=== PATIENT | female | born 1960 | race Caucasian/White ===

== ENCOUNTER 2021-12-04 08:50 | Day surgery (SDC) | payer OTHER ==
[~2021-12-04] VITALS: Ht 172.7 cm; Wt 58.2 kg
[~2021-12-04 08:50] MED LIST: ALBU90OI61 INH; ASPI325 PO; HYDR1TAB94 PO; Hair, Skin & N1 EACH PO; LORA10 PO; Mucinex1200 MG PO; Norco 5-325 Ta1 EACH PO; ONDA4 PO; OSTERA TABLET1 EACH PO; OXCA300 PO; PYRIDOSTIGMINE PO; UBID100 PO; Ultram50 MG PO
[2021-12-04] MEDS ORDERED: TRAM50 PO (10:08)
--- NOTE | 2021-12-04 10:30 | NUR ---
12/04/[address] ORDERED A TEST DOSE OF ANCEF TO BE GIVEN TO THE PATIENT WHILE IN PRE-OP DUE TO THE PHARMACY NOTIFYING US OF AN ALLERGY TO CEPHALOSPORINS. HE GAVE VERBAL ORDER TO GIVE 20% OF THE DOSE OF ANCEF 2GM AND HAVE BENADRYL 25MG IV READY IN CASE OF REACTION. PT STATES HER REACTION WAS MILD ITCHING. SHE TOLERATED TEST DOSE WELL THAT WAS GIVEN AT 1012. THEN DR ELIZABETH ORDERED SECOND TEST DOSE OF 4CC GIVEN AT 1017. DR FLORES ORDERED 5CC DOSE GIVEN AT 1021. DR'S WERE PRESENT DURING DOSING. PT TOLERATED WELL. DR FLORES WILL GIVE THE REMAINING DOSE IN THE OPERATING ROOM.
--- NOTE | 2021-12-04 11:20 | NUR ---
12/04/21 1120 Leo Coats GIVEN IN GRADUATED DOSES IN NILDA-OP DUE TO DISTANT ALLERGY TO CEPHLASPORINS. PT REPORTS MILD ITCH WITH CEPH;ASPORINS. PT TOLERATED GRADUATED DOSES WELL, WITHOUT SYMPTOMS.
--- NOTE | 2021-12-04 13:20 | NUR ---
12/04/21 1320 GUILLERMO STORY PT VITAL ARE STABLE OTHER THAN THE CONSISTANT 8-10/ 10 PAIN LEVEL. PT STATES THAT HER BASELINE HOME PAIN HAS BEEN 7-10/10
== END 2021-12-04 14:07 | disposition home or self-care (01) ==
LOC: ORSCSDS 08:50
PROVIDERS: Orthopaedic Surgery
PROC: 0PSD04Z Reposition Left Humeral Head with Internal Fixation Device, Open Approach (ICD-10-PCS; principal; 2021-12-04 10:00)
DX: S42.202A Unspecified fracture of upper end of left humerus, initial encounter for closed fracture (principal); W01.0XXA Fall on same level from slipping, tripping and stumbling without subsequent striking against object, initial encounter; G70.00 Myasthenia gravis without (acute) exacerbation; I10 Essential (primary) hypertension; J44.9 Chronic obstructive pulmonary disease, unspecified; Z79.899 Other long term (current) drug therapy; F17.210 Nicotine dependence, cigarettes, uncomplicated
CPT/HCPCS: A9270; C1713; C1769; J0171; J0690; J1100; J1200; J1885; J2250; J2405; J2704; J3010; J7120

== ENCOUNTER → 2023-02-22 | Outpatient (CLI) | payer OTHER ==
[~2023-02-22] MED LIST changes: +TRAM50 PO
[2023-02-27 07:54] LABS: Stool Occult Bld Immuno 1 Negative (NEGATIVE)
== END | disposition home or self-care (01) ==
LOC: LAB SHORT 17:15 → LAB 17:15
PROVIDERS: Nurse Practitioner Family
DX: Z12.11 Encounter for screening for malignant neoplasm of colon (principal)
CPT/HCPCS: G0328